=== PATIENT | female | born 1960 | race Caucasian/White ===

== ENCOUNTER → 2018-09-16 | Outpatient (CLI) | payer OTHER ==
--- NOTE | 2018-09-19 19:25 | SLE ---
[facility] [place] [address] POLYSOMNOGRAPHY STUDY Name: PURVI BORJAS Room #: REG [facility]#: [id number] Admission: 09/16/18 ������������������ Attend Phys: Daniel James MD Discharge: ������������������ Date of : 62 Report #: [id number] THIS REPORT FOR: //name// CC: Daniel WRIGHT MD DATE OF SERVICE: 09/16/2018 ATTENDING PHYSICIAN: Dewey Wright M.D. HISTORY OF PRESENT ILLNESS: Purvi is 58 years old who weighs 200 pounds with a BMI of 31.3. The patient's [place] score was 10. The patient underwent diagnostic sleep study performed at [facility]. During the night study, the patient spent 409 minutes in bed and slept for 285 minutes with a low sleep efficiency of 69.6%. Sleep latency was 51 minutes, which is prolonged with a REM latency of 168 minutes. Overall, sleep architecture showed normal stage 1 sleep with increased stage 2 sleep, which was 83% of the total sleep time. Normal N3 sleep and reduced REM sleep, which was 6% of the total sleep time. During the night study, the patient had 4 obstructive apneas, no mixed or central apneas and 37 hypopneas. The patient's apnea hypopnea index was 8.6 per hour with a worsening REM index of 46.7 per hour. The patient's supine index was 11.1 per hour. EKG monitoring revealed normal sinus rhythm. Average heart rate was 62 beats per minute with a maximum of 92 beats per minute. Frequent PVCs were observed, but no sustained arrhythmias observed. PLMS were seen at an index of 9.9 per hour and 1 per hour caused EEG arousals. Nocturnal oximetry study revealed an average oxygen saturation of 90% with a lowest of 76%. 121 minutes were spent in oxygen saturation of less than 89%. Nocturnal hypoxia was more prominent during REM sleep. Due to low AHI, the patient did not met the split night criteria for CPAP initiation. IMPRESSION: 1. Mild sleep apnea-hypopnea syndrome with worsening during REM sleep. Total AHI 8.6 per hour with a REM AHI of 46 per hour. 2. Nocturnal hypoxia secondary to combination of obstructive sleep apnea and hypoventilation. 3. Mild PLMS without any significant EEG arousals. This does not need to be [facility] [address] [place] [address] POLYSOMNOGRAPHY STUDY Name: PURVI BORJAS Donna Room #: REG [facility]#: [id number] Admission: 09/16/18 ������������������ Attend Phys: Daniel James MD Discharge: ������������������ Date of : 62 Report #: [id number] treated. 4. Reduced sleep efficiency of 69%, resulting from sleep onset and sleep maintenance insomnia. RECOMMENDATIONS: 1. The patient did not met the split night criteria for CPAP initiation. The patient is clinically symptomatic with an [place] score of 10. I would recommend weight loss as an initial form of treatment. 2. If the patient remains clinically symptomatic despite effective weight loss, then consider treatment of sleep apnea with either oral appliance as recommended by the dentist versus a trial of CPAP. 3. Once the patient is optimally treated, then follow up in 4 to 6 weeks to assess compliance with treatment and to document clinical improvement. 4. The patient's insomnia should also be further evaluated and treated according to the etiology. This can also contribute to daytime sleepiness. ��������������������������������������������� <ELECTRONICALLY SIGNED> ���������������������������������������� By: Daniel James MD ��������������������������������������������� 09/19/18 [id number] Daniel James MD /nt
== END ==
LOC: SLEEPLAB 15:10 → EDSTATUS 15:11 → SLEEPLAB 21:10
DX: G47.33 Obstructive sleep apnea (adult) (pediatric) (principal); G47.34 Idiopathic sleep related nonobstructive alveolar hypoventilation